=== PATIENT | female | born 1985 | race Caucasian/White ===

== ENCOUNTER 2021-03-02 17:13 | Emergency (ER) | payer SELFPAY ==
[~2021-03-02] VITALS: Ht 157.5 cm; Wt 65.0 kg
[2021-03-02 17:20] VITALS: BP 104/59
[2021-03-02] MEDS ORDERED: KETOROLAC 60MG/2ML VIAL IM ONE (19:30)
[2021-03-02] MEDS ORDERED: TETANUS, DIPHTHERIA, PERTUSSIS VAC/PF 0.5ML (>10YR OLD) IM ONE (19:30)
[2021-03-02] MEDS ORDERED: ACET-2708 MT (21:24)
== END 2021-03-02 21:54 | disposition home or self-care (01) ==
LOC: ER 17:13
DX: M25.562 Pain in left knee (principal); I69.354 Hemiplegia and hemiparesis following cerebral infarction affecting left non-dominant side; Z98.51 Tubal ligation status; W10.8XXA Fall (on) (from) other stairs and steps, initial encounter; Y93.89 Activity, other specified; Y92.018 Other place in single-family (private) house as the place of occurrence of the external cause
CPT/HCPCS: 73562; 90471; 90715; 96372; 99284; J1885